=== PATIENT | male | born 1990 | race Two or more races ===

== ENCOUNTER 2025-01-14 10:48 | Inpatient (IN) | payer MEDICAID, SELFPAY ==
[2025-01-14 10:57] VITALS: PULSE 120
[2025-01-14 10:58] VITALS: BMI 27.4
[2025-01-14 10:59] VITALS: BP 159/108; PULSE 112; RESP 18; TEMP 37.2; O2SAT 100
--- NOTE | 2025-01-14 11:06 | EKG_ITS ---
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
--- NOTE | 2025-01-14 11:09 | PD.EDADULT ---
ED General RME/HPI General Chief complaint: Seizure Stated complaint: SEIZURE Time Seen by Provider: 01/14/25 11:02 Arrival date/time: 01/14/25 10:48 CC: Possible seizure HPI patient presents to the ER via EMS report tachycardia otherwise stable vital signs. The patient was found with a seizure-like activity at home. The patient is an alcoholic drinking beer for the past 5 years last beer consumption was at 10 PM last night. Patient is awake alert oriented states he is a diabetic does not take any medications for it. Patient currently denies chest pain shortness of breath difficulty breathing headache nausea vomiting or diarrhea. Review of the medical record show the patient has no prior visits to this facility. at bedside states the patient drinks up to 20 beers a day. She states yesterday the patient drank only 4 beers Related Data Allergies Allergy/AdvReac Type Severity Reaction Status Date / Time No Known Allergies Allergy Verified 01/14/25 11:04 Review of Systems Review of Systems Narrative Review of Systems: GEN: No fever, no chills, no weight loss EYES: No discharge, no visual changes, no pain HEENT: No ear pain, no congestion, no sore throat PULM: No shortness of breath, no cough, no congestion CV: No chest pain, no dyspnea on exertion, no palpitations GI: No nausea, no vomiting, no diarrhea, no pain, no constipation : No frequency, no urgency, no dysuria MUSC/SKEL: No joint pain, no back pain SKIN: No rash PSYCH: No hallucinations, no depression HEME/LYMPH: No easy bleeding or bruising tendencies NEURO: No weakness, no headache Past Medical History Past Medical History CARDIAC: Positive Hypercholesterolemia and Hypertension; Negative Congestive Heart Failure RESPIRATORY: Negative Chronic Obstructive Pulmonary Disease (COPD) GENITOURINARY: Negative Renal Disease ENDOCRINE: Positive Diabetes Mellitus Type 2; Negative Diabetes Mellitus Type 1 Social History SMOKING STATUS: Never smoker ED Exam Narrative Physical exam: [General: Appears not in any acute distress Head normocephalic HEENT: Eyes pupils are PERRLA EOMs are intact mouth pink dry membranes uvula is midline swallow symmetrical phonation is normal no nose: No rhinorrhea epistaxis. All other subsystems of age anterior within acceptable limits Neck is supple nontender, no JVD no edema Chest equal chest rise nontender to palpation Respiratory: Clear to auscultation no wheezes crackles or rubs CV: Rate rhythm is regular, tachycardic, no murmurs rubs or clicks Abdomen is soft nontender no masses positive bowel sounds all 4 quadrants Back: No CVA tenderness no spinous process tenderness from cervical spine thoracic and lumbar spine Skin: Intact no petechiae rash induration ulceration or crepitus Extremities: Moving all extremity against resistance cap refill less than 2 seconds neurosensory intact. No lower extremity edema. Neuro: Awake alert oriented x3 Glascow coma 15 no focal deficits] Course Course Course Narrative: Upon initial assessment CIWA of 8. Reexamination of the patient was given 2 mg of Ativan the patient's heart rate continues to be elevated now in the 1 teens she was increased to 12 at this time I am concerned about this patient having significant alcohol withdrawal. Patient's case then discussed with the resident for Dr. Doll agrees to accept the patient for alcohol withdrawal. Quality Measures none Orders Category Date Time Status EKG (ED ONLY) *Do not use* NOW Care 01/14/25 11:06 Completed Saline [Insert IV] NOW Care 01/14/25 11:06 Active EKG (ED Only) Stat Exams 01/14/25 11:06 Draft Alcohol, Blood Medical Stat Lab 01/14/25 11:26 Completed B-Type Natriuretic Peptide Stat Lab 01/14/25 11:26 Completed CBC Stat Lab 01/14/25 11:26 Completed Comprehensive Metabolic Panel Stat Lab 01/14/25 11:26 Completed Drug Screen,Urine Stat Lab 01/14/25 11:44 Completed LDH (Lactate Dehydrogenase) Stat Lab 01/14/25 11:26 Completed Magnesium Stat Lab 01/14/25 11:26 Completed Partial Thromboplastin Time Stat Lab 01/14/25 11:26 Completed Prothrombin Time with INR Stat Lab 01/14/25 11:26 Completed Troponin I Stat Lab 01/14/25 11:26 Completed Urinalysis Stat Lab 01/14/25 11:44 Completed Folic Acid Inj Med 01/14/25 11:06 Discontinued 1 mg IVP X1 ONE Insulin Regular Med 01/14/25 12:47 Discontinued 5 unit SC X1 ONE LORazepam [Ativan Inj] Med 01/14/25 11:14 Discontinued 2 mg IVP X1 ONE LORazepam [Ativan Inj] Med 01/14/25 14:21 Discontinued 2 mg IVP X1 ONE Sodium Chloride 0.9% 1000 ml [Ns] 1,000 ml Med 01/14/25 11:07 Active IV 125 mls/hr Sodium Chloride 0.9% 1000 ml [Ns] 1,000 ml Med 01/14/25 11:06 Discontinued IV 999 mls/hr Thiamine Inj [Vitamin B-1 Inj] Med 01/14/25 11:30 Discontinued 100 mg IVP X1 ONE Thiamine Inj [Vitamin B-1 Inj] 100 mg Med 01/14/25 11:07 Discontinued Sodium Chloride 0.9% [Ns] 100 ml IV X1 chlordiazePOXIDE HCl [Librium] Med 01/14/25 11:06 Discontinued 25 mg PO X1 ONE Vital Signs Vital signs: Vital Signs Temperature 99.0 F 01/14/25 10:59 Pulse Rate 112 H 01/14/25 10:59 Respiratory Rate 18 01/14/25 10:59 Blood Pressure 159/108 H 01/14/25 10:59 Pulse Oximetry (%) 100 01/14/25 10:59 Oxygen Delivery Method Room Air 01/14/25 10:59 Discharge Plan Plan Patient Disposition: Other Care w/in Hosp ([facility]) Patient condition on transfer: Stable Prescriptions/Referrals Referrals: No Primary/Family,Physician [Primary Care Provider] - In 1 week Problem List Clinical Impression: Hyponatremia, Alcohol withdrawal Patient/Caregiver Discharge Instructions Print Language: Martiniquais Stand Alone Forms: Mary Award Info., Patient Portal Info Letter PA/VIRTUAL REALITY SPECIALIST Supervising Physician PA/VIRTUAL REALITY SPECIALIST Supervising Physician: Simeon Norris ENP MDM Labs/Rad/Tests considered, not ordered Describe: CBC shows a leukocytosis of 14 2 with an H&H of 12.2 and 34.8 respectively platelets of 236 Coags show PT of 12.7 no other abnormalities CMP shows a sodium of 127 chloride of 93 potassium 3.5 no renal impairment. Glucose at 409 mag at 2.2 Total bili at 1.7 AST of 133 ALT 47 alk phos of 388 LDH at 207 Troponin and BNP within acceptable limits. Urine shows 2+ protein 4+ glucose 1+ ketones 2+ blood no signs of infection. UDS is negative Alcohol is negative. EKG Interpretation EKG #1: EKG Interpretation: EKG performed at 1126 shows a ventricular rate of 102 ID interval 158 QRS of 85 QTc of 429 is sinus tachycardia. Nonspecific T wave abnormality no old EKG for comparison. Labs Lab(s) Interpretation(s): CBC shows a mild leukocytosis of 14.2 and H&H of 12.0 and 34.8 respectively. Platelets are normal at 236. Coags show PT of 12.7 INR PTT within acceptable limits CMP shows sodium 127 potassium 3.5 chloride 93, glucose of 409. BUN of 7 no other electrolyte imbalances. Total bili at 1.7 AST 133 ALT 46 alk phos at 338. LDH at 207 Troponin is negative BNP is negative Urine shows 2+ protein 4+ glucose 1+ ketones 2+ urine blood. No indication of UTI. UDS is negative Alcohol level is less than 3. Medication Administration(s) Medication Administration History Sodium Chloride (Ns) 1,000 mls @ 125 mls/hr IV .Q8H LARY Stop: 02/13/25 11:06 Last Admin: 01/14/25 12:38 Dose: 125 mls/hr Documented By: LUIS ALFREDO Discontinued Medications Chlordiazepoxide HCl (Chlordiazepoxide Hcl 25 Mg Capsule) 25 mg PO X1 ONE Stop: 01/14/25 11:07 Last Admin: 01/14/25 11:24 Dose: 25 mg Documented By: LUIS ALFREDO Folic Acid (Folic Acid Inj 1 Mg/0.2 Ml) 1 mg IVP X1 ONE Stop: 01/14/25 11:07 Last Admin: 01/14/25 11:25 Dose: 1 mg Documented By: LUIS ALFREDO Sodium Chloride (Ns) 1,000 mls @ 999 mls/hr IV .Q1H1M ONE Stop: 01/14/25 12:06 Last Infusion: 01/14/25 12:38 Dose: Infused Documented By: LUIS ALFREDO Admin: 01/14/25 11:26 Dose: 999 mls/hr Documented By: LUIS ALFREDO Thiamine HCl 100 mg/ Sodium (Chloride) 101 mls @ 202 mls/hr IV X1 ONE Stop: 01/14/25 11:36 Last Admin: 01/14/25 11:36 Dose: Not Given Documented By: LUIS ALFREDO Non-Admin Reason: Cancelled by Provider Insulin Human Regular (Insulin Hum Regular 1 Unit/0.01 Ml (Per Unit)) 5 unit SC X1 ONE Stop: 01/14/25 12:48 Last Admin: 01/14/25 13:10 Dose: 5 unit Documented By: LUIS ALFREDO Co-signed By: TAMEKA Lorazepam (Lorazepam 2 Mg/Ml Vial) 2 mg IVP X1 ONE Stop: 01/14/25 11:15 Last Admin: 01/14/25 13:00 Dose: Not Given Documented By: LUIS ALFREDO Non-Admin Reason: Cancelled by Provider Lorazepam (Lorazepam 2 Mg/Ml Vial) 2 mg IVP X1 ONE Stop: 01/14/25 14:22 Last Admin: 01/14/25 14:27 Dose: 2 mg Documented By: LUIS ALFREDO Thiamine HCl (Thiamine Inj 100 Mg/Ml Vial 2 Ml) 100 mg IVP X1 ONE Stop: 01/14/25 11:31 Last Admin: 01/14/25 11:34 Dose: 100 mg Documented By: LUIS ALFREDO
[2025-01-14] MEDS: chlordiazePOXIDE HCl 25 MG CAPSULE PO ×2 (11:24→22:08)
[2025-01-14] MEDS: FOLIC ACID INJ 1 MG/0.2 ML IVP (11:25)
[2025-01-14] MEDS: SODIUM CHLORIDE 0.9% 1000 ML 1,000 ML 999 ML IV (11:26)
[2025-01-14] MEDS: THIAMINE INJ 100 MG/ML VIAL 2 ML IVP (11:34)
[2025-01-14 11:45] LABS: Basophils # (Auto) 0.1 Thou/mm3 (0.0-0.2); Basophils % (Auto) 1 % (0-2.5); Eosinophils # (Auto) 0.1 Thou/mm3 (0.0-0.5); Eosinophils % (Auto) 1 % (0-10); Hematocrit 34.8 % (41.0-53.0); Immature Granulocytes % (Auto) 1 % (0-0); Immature Granulocytes Auto 0.09 Thou/mm3 (0.00-0.00); Lymphocytes # (Auto) 1.5 Thou/mm3 (1.0-4.8); Lymphocytes % (Auto) 11 % (10-50); Mean Corpuscular HGB Conc 34.5 g/dl (31.0-37.0); Mean Corpuscular Hemoglobin 32.8 pg (25.0-35.0); Mean Corpuscular Volume 95 fL (80-100); Monocytes # (Auto) 1.4 Thou/mm3 (0.0-0.8); Monocytes % (Auto) 10 % (0-12); Neutrophils % (Auto) 78 % (37-80); Nucleated Red Blood Cell % 0 /100 WBC (0); Platelet Count 236 Thou/mm3 (140-440); RDW Standard Deviation 50.6 fL (35.1-43.9); Red Blood Count 3.66 Miln/mm3 (4.50-5.90); White Blood Count 14.2 Thou/mm3 (3.8-10.6)
[2025-01-14 11:58] LABS: B-Type Natriuretic Peptide 53 pg/mL (0-100)
[2025-01-14 11:59] LABS: INR 1.2 (0.9-1.3); Partial Thromboplastin Time 29.5 Seconds (22.0-36.0); Prothrombin Time 12.7 Seconds (9.0-12.2)
[2025-01-14 12:00] LABS: Collection Type, Urine Clean Catch; Squamous Epithelial Cell,Urine 0 /hpf (0-5)
[2025-01-14 12:12] LABS: Alanine Aminotransferase 46 U/L (10-49); Albumin, Serum 4.3 gm/dL (3.5-5.0); Albumin/Globulin Ratio 0.8 (1.2-2.2); Alcohol, Blood Medical < 3.0 mg/dL (0-10.0); Alkaline Phosphatase 338 U/L (46-116); Anion Gap 11 (7-16); Aspartate Amino Transferase 133 U/L (0-34); BUN/Creatinine Ratio 9 Ratio (12-20); Bilirubin,Total 1.7 mg/dL (0.3-1.2); Blood Urea Nitrogen 7 mg/dL (9-23); Calcium 9.4 mg/dL (8.3-10.6); Calcium (Corrected) 9.4 mg/dL (8.5-10.1); Carbon Dioxide 22.7 mMol/L (20.0-31.0); Chloride 93 mMol/L (98-107); Creatinine (Component) 0.8 mg/dL (0.6-1.3); Estimated Creatinine Clearance 113.5 mL/min (>60); Globulin 5.1 gm/dL (2.3-3.5); Magnesium 2.2 mg/dL (1.6-2.6); Osmolality,Calculated 270 (275-295); Potassium 3.5 mMol/L (3.4-5.1); Sodium 127 mMol/L (136-145); Total Protein 9.4 gm/dL (5.7-8.2); Troponin I < 0.020 ng/mL (0.0-0.045); eGFR > 60 See Note
[2025-01-14 12:19] LABS: Amphetamine/Methamp Scrn,U Negative (Negative); Barbiturate Screen,Urine Negative (Negative); Benzodiazepines Screen,Urine Negative (Negative); Benzoylecgonine Screen, Ur Negative (Negative); Fentanyl Screen,Urine Negative (Negative); Opiate Screen,Urine Negative (Negative); THC Screen,Urine Negative (Negative)
[2025-01-14 12:23] LABS: LDH (Lactate Dehydrogenase) 207 U/L (120-246)
[2025-01-14 12:31] LABS: Bilirubin,Urine Negative (Negative); Blood,Urine 2+ (Negative); Clarity,Urine Clear (Clear/Hazy); Color,Urine Yellow (Lt Yel-Yel); Glucose, Urine 4+ (Negative); Ketones,Urine 1+ (Negative); Leukocyte Esterase,Urine Negative (Negative); Nitrite,Urine Negative (Negative); Protein,Urine 2+ (Neg - Trace); RBC,Urine 1 /hpf (0-3); Specific Gravity,Urine 1.031 (1.001-1.035); WBC,Urine < 1 /hpf (0-5)
[2025-01-14 12:35] LABS: Glucose 409 mg/dL (74-106)
[2025-01-14] MEDS: SODIUM CHLORIDE 0.9% 1000 ML 1,000 ML 125 ML IV ×2 (12:38→22:09)
[2025-01-14] MEDS: INSULIN HUM REGULAR 1 UNIT/0.01 ML (PER UNIT) 5 UNIT SC (13:10)
[2025-01-14] MEDS: LORazepam 2 MG/ML VIAL IVP (14:27)
[2025-01-14 15:28] VITALS: BP 155/101; PULSE 113; RESP 19; TEMP 37.7; O2SAT 98
--- NOTE | 2025-01-14 16:18 | XR_ITS ---
Examination: CT brain head without contrast. 2-D sagittal coronal reconstructions Date and time of exam:January 14, 2025 at 1640 hours. CTDI: vol (mGy):53 DLP: (mGycm):1003 Technique: Multiple CT axial sections of the brain have been obtained, 5 mm slice thickness. Contrast has not been administered. 2-D sagittal, coronal reconstructions have been obtained Low dose protocols were performed. One or more of the following dose reduction techniques were used; automated exposure control, adjustment of the mA and/or KV according to patient size, use of iterative reconstruction technique. Findings: No significant ventricular enlargement. Intra-axial or extra-axial hemorrhage density is not seen. No mass effect or midline shift Basal cisterns are not remarkable. Fourth ventricle is midline. Cranial vault intact. Subtle low density 25 mm in the right cerebellar hemisphere Impression: Negative for acute hemorrhage, mass effect or midline shift Subtle low density, which may be old, in the right cerebellar hemisphere, 25 mm, axial image 30, recommend MRI brain follow-up pre and postcontrast
--- NOTE | 2025-01-14 16:18 | XR_ITS ---
Examination: CT cervical spine without contrast 2-D sagittal reconstructions 2-D coronal reconstructions 3-D reconstructions. Exam date and time:January 14, 2025 1640 hours INDICATIONS: Patient fell today with seizures, injury to the neck, neck pain CTDI:vol (mGy) 14 DLP: (mGycm) 9 Technique: Multiple 2 mm axial sections of the cervical spine have been obtained. The coronal and sagittal reconstructions have been obtained. 3-D reconstructions have been obtained. Low dose protocols were performed. One or more of the following dose reduction techniques were used; automated exposure control, adjustment of the mA and/or KV according to patient size, use of iterative reconstruction technique. Findings: Axial sections demonstrate intact base of the skull. C1 exhibit satisfactory relationship to the odontoid. No acute cervical vertebral body fracture seen. Alignment posterior spinous processes satisfactory. Impression: No acute cervical fracture.
[2025-01-14 17:58] VITALS: BP 132/94; PULSE 94; RESP 17; TEMP 37.4; O2SAT 100
--- NOTE | 2025-01-14 18:33 | PD.RESHP ---
Documentation for date of: 01/14/25 HPI History of Present Illness Chief complaint: alcohol withdrawal with seizure like activity History of present illness: 34-year-old male with past medical history of diabetes, hypertension, and hyperlipidemia, but not taking any medication was admitted to the hospital on 01/14/2025 after coming to the ED with complaints of seizure-like activity today after patient had not been drinking alcohol since yesterday at 8 PM. Patient stated that he had been drinking around a 12 pack of beer every day for the past few years and that his last drink was yesterday at 8 PM. Today patient was working outside in the yard work when he suddenly lost consciousness and collapsed to the ground. Patient's who was at bedside stated that patient started having some foaming from his mouth and that he was cheeking as well. She stated that patient hit his head with one of the steps of the staircase and he also scraped his left shoulder. Patient and patient's stated that this is the first episode that he has had any seizure-like activity and that he has not had alcohol withdrawals before. Patient also mentioned that he has a lesion on his tongue which she thinks is infected and this was from prior to his episode of seizure-like activity today. Patient is on no medications right now for his medical history. He did mention that he had a slight headache and his CIWA score on my assessment was 7, but earlier he came in with a CIWA score of 8 which then went up to 12 before my initial assessment. He denies any chest pain, shortness of breath, dysuria, bloody bowel movements, nausea or vomiting, or abdominal pain. ED course: Initially came in tachycardic and hypertensive. Initial labs were relevant for leukocytosis (14.2), pseudohyponatremia (127 and corrected 132), hyperglycemia (409), hyperbilirubinemia (1.7), transaminitis (AST 133 and alkaline phosphatase 338), and urine was positive for proteins, blood, and ketones. Alcohol levels were less than 3. Initial imaging included EKG which showed sinus tachycardia. Head CT which showed a 25 mm area suspicious for possible old right cerebellar hemisphere infarct and cervical spine CT which was unremarkable. In the ED patient received 1 dose of Librium 25 mg, 5 units of insulin, and 2 mg of lorazepam. PMH: As above Surgical Hx: None per patient Social Hx: Denies any smoking or illicit drugs, admits to drinking alcohol about 12 beers per day. Medications: None per patient Review of Systems Review of Systems Narrative Review of Systems: Constitutional: Denies sweats, Denies weight loss/gain, Denies fever, Denies chills. HEENT: Denies hearing loss, Denies ear pain, Denies postnasal drip, Denies double vision, Denies blurry vision. Respiratory: Denies shortness of breath, Denies cough, Denies wheezing. Cardiovascular: Denies chest pain, Denies palpitations, Admits sudden loss of consciousness. GI: Denies blood in stool, Denies constipation, Denies abdominal pain, Denies difficulty swallowing, Denies nausea or vomit. : Denies urinary incontinence, Denies pain while urinating, Denies increased urinary frequency. MSK: Denies joint pain, Denies joint swelling, Denies numbness. Skin: Denies rash, Denies itching, Denies easy bruising. Neuro: Admits headaches, Denies dizziness, Admits seizures. Past Medical History Past Medical History CARDIAC: Positive Hypercholesterolemia and Hypertension; Negative Congestive Heart Failure RESPIRATORY: Negative Chronic Obstructive Pulmonary Disease (COPD) GENITOURINARY: Negative Renal Disease ENDOCRINE: Positive Diabetes Mellitus Type 2; Negative Diabetes Mellitus Type 1 Social History SMOKING STATUS: Never smoker Exam Vital Signs Temp Pulse Resp BP Pulse Ox O2 Del Method O2 Flow Rate 99.4 F 94 17 132/94 H 100 Nasal Cannula 1 01/14/25 17:58 01/14/25 17:58 01/14/25 17:58 01/14/25 17:58 01/14/25 17:58 01/14/25 17:58 01/14/25 17:58 Narrative Exam General: A/O x3, mild distress, diaphoretic, anxious appearing Eyes: PERRL, EOMI. Anicteric, vision grossly intact. Ears: No ear pain, no ear discharge, Hearing grossly intact. Nose: No nasal discharge. Mouth/Throat: Dry mucous membranes, no redness, eryhtematous lesion on R side tip of the tongue without discharge. Neck: Neck supple, non-tender, no cervical lymphadenopathy. Lungs: Clear BLAINE to auscultation and percussion, No accessory muscle use. Cardio: Normal S1/S2, regular rhythm, no murmurs, no JVD Abdomen: Soft,but distended, non-tender, no palpable masses, peristalsis present, no guarding or rebound. Extremities: Symmetrical, no significant deformities, no peripheral edema , non-tender, peripheral pulses presents, tremors visible in UE when extended. Skin: No rashes, no lesions, warm to touch. Neuro: No focal neurological deficits. motor and sensory intact Psych: Anxious appearing Results: Labs 01/15/25 05:01/15/25 05: Labs: Short CBC 01/14/25 Range/Units 11:26 WBC 14.2 H (3.8-10.6) Thou/mm3 Hgb 12.0 L (13.5-16.0) g/dL Hct 34.8 L (41.0-53.0) % Plt Count 236 (140-440) Thou/mm3 BMP 01/14/25 11:26 Sodium 127 L Potassium 3.5 Chloride 93 L Carbon Dioxide 22.7 BUN 7 L Creatinine 0.8 Glucose 409 H* Calcium 9.4 Cardiac Enzymes 01/14/25 Range/Units 11:26 Troponin I < 0.020 (0.0-0.045) ng/mL Liver Function 01/14/25 Range/Units 11:26 Total Bilirubin 1.7 H (0.3-1.2) mg/dL AST 133 H (0-34) U/L ALT 46 (10-49) U/L Alkaline Phosphatase 338 H (46-116) U/L Albumin 4.3 (3.5-5.0) gm/dL Urine 01/14/25 Range/Units 11:44 Urine Color Yellow (Lt Yel-Yel) Urine Clarity Clear (Clear/Hazy) Urine pH 7.0 (5.0-7.0) Ur Specific [place] 1.031 (1.001-1.035) Urine Protein 2+ A (Neg - Trace) Urine Glucose (UA) 4+ A (Negative) Quality Measures Quality Measures none Medications Home Medications and Allergies Home Medications ?Medication ?Instructions ?Recorded ?Confirmed ?Type Unobtainable 01/14/25 01/14/25 History Allergies Allergy/AdvReac Type Severity Reaction Status Date / Time No Known Allergies Allergy Verified 01/14/25 11:04 Visit Medications Acetaminophen (Acetaminophen 325 Mg Tablet) 650 mg PO Q6H PRN PRN Reason: pain 1-3 and Fever >100.4 Stop: 02/13/25 17:27 Chlordiazepoxide HCl (Chlordiazepoxide Hcl 25 Mg Capsule) 25 mg PO TID [facility] Stop: 01/15/25 21:59 Dextrose (Dextrose 50%-Water Inj 50 Ml Syringe) 25 ml IV Q15MIN PRN PRN Reason: BG 50-70 responsive npo pt Stop: 02/13/25 17:27 Dextrose (Dextrose 50%-Water Inj 50 Ml Syringe) 50 ml IV Q15MIN PRN PRN Reason: BG <50 OR BG <70 & pt unresponsive Stop: 02/13/25 17:27 Enoxaparin Sodium (Enoxaparin Sod Inj 40 Mg/0.4 Ml Syringe) 40 mg SC QDAY [facility] Stop: 01/29/25 08:59 Folic Acid (Folic Acid 1 Mg Tablet) 1 mg PO BID [facility] Stop: 01/19/25 20:59 Glucagon (Glucagon Inj 1 Mg Vial) 1 mg IM Q15MIN PRN PRN Reason: BG <70, and no IV access Sodium Chloride (Ns) 1,000 mls @ 125 mls/hr IV .Q8H [facility] Stop: 02/13/25 11:06 Last Admin: 01/14/25 12:38 Dose: 125 mls/hr Insulin Glargine (Insulin Glargine (Lantus) 5 Unit/0.05 Ml (Per 5 Units)) 10 unit SC QDAY [facility] Stop: 02/13/25 17:44 Insulin Human Lispro (Insulin Lispro (Admelog) 1 Unit/0.01 Ml Unit) 0 unit SC AC [facility]; Protocol Stop: 02/14/25 07:29 Lorazepam (Lorazepam 0.5 Mg Tablet) 0.5 mg PO Q4HR PRN PRN Reason: CIWA Score 2-6 Stop: 01/19/25 17:27 Lorazepam (Lorazepam 2 Mg/Ml Vial) 1 mg IV X1 PRN PRN Reason: Breakthrough Agitation Lorazepam (Lorazepam 0.5 Mg Tablet) 1 mg PO Q4HR PRN PRN Reason: CIWA SCORE 7-11 Stop: 01/19/25 17:27 Lorazepam (Lorazepam 0.5 Mg Tablet) 2 mg PO Q4HR PRN PRN Reason: CIWA SCORE 12-15 Stop: 01/19/25 17:27 Ondansetron HCl (Ondansetron Inj 2 Mg/Ml Inj 2 Ml) 4 mg IV Q6H PRN; Protocol PRN Reason: NAUSEA OR VOMITING Stop: 02/13/25 17:27 Pantoprazole Sodium (Pantoprazole Inj 40 Mg Vial) 40 mg IVP QDAY [facility] Stop: 02/13/25 17:29 Thiamine HCl (Thiamine 100 Mg Tablet) 100 mg PO BID [facility]ARY Stop: 01/19/25 20:59 Discontinued Medications Chlordiazepoxide HCl (Chlordiazepoxide Hcl 25 Mg Capsule) 25 mg PO X1 ONE Stop: 01/14/25 11:07 Last Admin: 01/14/25 11:24 Dose: 25 mg Folic Acid (Folic Acid Inj 1 Mg/0.2 Ml) 1 mg IVP X1 ONE Stop: 01/14/25 11:07 Last Admin: 01/14/25 11:25 Dose: 1 mg Sodium Chloride (Ns) 1,000 mls @ 999 mls/hr IV .Q1H1M ONE Stop: 01/14/25 12:06 Last Infusion: 01/14/25 12:38 Dose: Infused Thiamine HCl 100 mg/ Sodium (Chloride) 101 mls @ 202 mls/hr IV X1 ONE Stop: 01/14/25 11:36 Last Admin: 01/14/25 11:36 Dose: Not Given Insulin Human Regular (Insulin Hum Regular 1 Unit/0.01 Ml (Per Unit)) 5 unit SC X1 ONE Stop: 01/14/25 12:48 Last Admin: 01/14/25 13:10 Dose: 5 unit Lorazepam (Lorazepam 2 Mg/Ml Vial) 2 mg IVP X1 ONE Stop: 01/14/25 11:15 Last Admin: 01/14/25 13:00 Dose: Not Given Lorazepam (Lorazepam 2 Mg/Ml Vial) 2 mg IVP X1 ONE Stop: 01/14/25 14:22 Last Admin: 01/14/25 14:27 Dose: 2 mg Thiamine HCl (Thiamine Inj 100 Mg/Ml Vial 2 Ml) 100 mg IVP X1 ONE Stop: 01/14/25 11:31 Last Admin: 01/14/25 11:34 Dose: 100 mg Assessment & Plan Plan 34-year-old male with past medical history of diabetes, hypertension, and hyperlipidemia, but not taking any medication was admitted to the hospital on 01/14/2025 for alcohol withdrawal with seizures. #Alcohol withdrawal with seizures #Seizure-like activity likely secondary to alcohol withdrawal #Transaminitis #Hyperbilirubinemia Patient stated that he drinks around 12 beers a day and that today he did not drink anything. Patient's last drink was yesterday around 8 PM. Patient had seizure-like activity witnessed by the and loss of consciousness as well today in the morning while he was working in his yard. This is the first episode Alcohol level is less than 3 CIWA score of 7 on my assessment Patient's AST was 133, alkaline phosphatase 338, and T bilirubin 1.7 on admission this most likely due to alcohol use Plan: IV fluids CIWA protocol ordered Schedule Librium 25 mg 3 times daily EEG ordered Abdomen ultrasound ordered to assess for cirrhosis and possible ascites Seizure precautions ordered Will continue to monitor patient's liver enzymes in the morning. 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, [address] that showed a 25 mm area suspicious for possible old right cerebellar hemisphere infarct Plan: Will order MRI brain without contrast to better assess Will continue to monitor Neurology consulted, appreciate recommendations #Uncontrolled DM2 #Hyperglycemia Patient has a history of diabetes, but has been noncompliant with his medication and is currently on no medication Patient came in with blood sugar of 409 with some ketones seen in the urine, but no high anion gap metabolic acidosis Plan: A1c for morning labs Insulin glargine 10 units daily ISS Hypoglycemia protocol ordered Will continue to monitor #Pseudohyponatremia Patient's sodium was 127, but glucose was 409 therefore corrected sodium was 132 Close to be a component of beer potomania Plan: IV fluids Will continue to monitor #Tongue lesion, possible abscess #Leukocytosis Patient does have a white blood cell count of 14.2 and he does have a lesion on the tip of his tongue on the right aspect that is erythematous, but no purulent discharge seen Patient stated this has been there for around 3 days No fevers Plan: Will place patient on Unasyn 3 mg every 6 hours Will continue to monitor #Hx of hypertension #Hx of hyperlipidemia Patient is not on any medications for either hypertension hyperlipidemia Patient's high blood pressure in the hospital could be most likely due to alcohol withdrawal Plan: Ordered morning lipid panel Will continue to monitor patient's blood pressure Disposition: Patient admitted to telemetry for alcohol withdrawal with seizures. Diet: Carb low GI prophylaxis: protonix DVT prophylaxis: lovenox Code: full Case disclosed with Attending Dr. Surekha Pope PGY1 Attending Provider Attestation/Addendum I reviewed labs, imaging, EKG, home medications and prior available records. Face to face evaluation was performed by me. I have personally examined the patient and discussed assessment and plan with the IM team. I reviewed the resident note and agree with the plan with exceptions as below. 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 Continue IV fluids Monitor sodium level Avoid alcohol use Thiamine and folic acid Seizure precautions Trend LFTs Trend WBC Started insulin Lantus plus sliding scale insulin. Monitor fingersticks Ensure medication compliance Ordered brain MRI to better visualize the abnormal CT scan finding
--- NOTE | 2025-01-14 18:44 | XR_ITS ---
Examination: Abdomen sonogram, complete Date and time of exam: January 14, 2025 1920 hours INDICATIONS: Diagnosis cirrhosis with abdominal distention today. Technique: Multiple real-time grayscale transabdominal sonographic images of the abdomen have been obtained. Findings: Gallbladder sludge Contracted gallbladder gallbladder wall thickening 0.6 cm Common bile duct 0.4 cm The pancreatic head 2.5 cm the aorta is not enlarged. Hepatomegaly 20.8 cm fatty infiltration Normal hepatopedal portal venous flow Patent IVC Right kidney 11.7 cm the cortex 1.7 cm left kidney 11.7 cm Vortex 2.2 cm Mild renal parenchymal scar formation Spleen not enlarged IMPRESSION: Suspicious for acalculus cholecystitis, consider MRCP or HIDA scan follow-up
[2025-01-14 21:10] VITALS: BP 140/103; PULSE 108; RESP 17; TEMP 37.1; O2SAT 97
[2025-01-14] MEDS: FOLIC ACID 1 MG TABLET PO (21:16)
[2025-01-14] MEDS: THIAMINE 100 MG TABLET PO (21:16)
[2025-01-14] MEDS: PANTOPRAZOLE INJ 40 MG VIAL IVP (21:17)
[2025-01-14] MEDS: INSULIN GLARGINE (Lantus) 5 UNIT/0.05 ML (PER 5 UNITS) 10 UNIT SC (21:18)
[2025-01-14] MEDS: AMPICILLIN/SULBAC INJ 3 GM in SODIUM CHLORIDE 0.9% (POP) 100 ML IV (21:22)
[2025-01-14 22:29] VITALS: BP 142/99; PULSE 105; RESP 16; TEMP 37.7; O2SAT 98
[2025-01-15] VITALS (7 sets, daily range): BP systolic 137–148; BP diastolic 84–109; PULSE 80–104; RESP 18–98; TEMP 36.3–36.8; O2SAT 96–99; BMI 26.5; BMI 26.6
--- NOTE | 2025-01-15 02:15 | RESP.EEG ---
EEG has been recorded and is ready for MD interpretation
[2025-01-15] MEDS: chlordiazePOXIDE HCl 25 MG CAPSULE PO (05:07)
[2025-01-15] MEDS: AMPICILLIN/SULBAC INJ 3 GM in SODIUM CHLORIDE 0.9% (POP) 100 ML IV ×2 (05:07→11:25)
[2025-01-15 06:16] LABS: Basophils # (Auto) 0.1 Thou/mm3 (0.0-0.2); Basophils % (Auto) 1 % (0-2.5); Eosinophils # (Auto) 0.4 Thou/mm3 (0.0-0.5); Eosinophils % (Auto) 3 % (0-10); Hematocrit 34.9 % (41.0-53.0); Hemoglobin 11.7 g/dL (13.5-16.0); Immature Granulocytes % (Auto) 0 % (0-0); Immature Granulocytes Auto 0.04 Thou/mm3 (0.00-0.00); Lymphocytes # (Auto) 1.6 Thou/mm3 (1.0-4.8); Lymphocytes % (Auto) 13 % (10-50); Mean Corpuscular HGB Conc 33.5 g/dl (31.0-37.0); Mean Corpuscular Hemoglobin 32.1 pg (25.0-35.0); Mean Corpuscular Volume 96 fL (80-100); Monocytes # (Auto) 1.1 Thou/mm3 (0.0-0.8); Monocytes % (Auto) 9 % (0-12); Neutrophils # (Auto) 8.9 Thou/mm3 (1.8-7.7); Neutrophils % (Auto) 73 % (37-80); Nucleated Red Blood Cell % 0 /100 WBC (0); Platelet Count 194 Thou/mm3 (140-440); RDW Standard Deviation 51.9 fL (35.1-43.9); Red Blood Count 3.64 Miln/mm3 (4.50-5.90); White Blood Count 12.1 Thou/mm3 (3.8-10.6)
[2025-01-15 06:51] LABS: Alanine Aminotransferase 45 U/L (10-49); Albumin/Globulin Ratio 0.9 (1.2-2.2); Alkaline Phosphatase 307 U/L (46-116); Anion Gap 11 (7-16); Aspartate Amino Transferase 165 U/L (0-34); BUN/Creatinine Ratio 8 Ratio (12-20); Bilirubin,Total 1.3 mg/dL (0.3-1.2); Blood Urea Nitrogen < 5 mg/dL (9-23); Calcium 8.5 mg/dL (8.3-10.6); Calcium (Corrected) 8.5 mg/dL (8.5-10.1); Carbon Dioxide 26.5 mMol/L (20.0-31.0); Chloride 99 mMol/L (98-107); Creatinine (Component) 0.6 mg/dL (0.6-1.3); Estimated Creatinine Clearance 151.3 mL/min (>60); Globulin 4.7 gm/dL (2.3-3.5); Glucose 177 mg/dL (74-106); Osmolality,Calculated 273 (275-295); Potassium 3.1 mMol/L (3.4-5.1); Sodium 136 mMol/L (136-145); Thyroid Stimulating Hormone 4.82 uIU/mL (0.55-4.78); Total Protein 8.7 gm/dL (5.7-8.2); eGFR > 60 See Note
[2025-01-15 06:57] LABS: Glucose Estimated Average 249 mg/dL (80-131); Hemoglobin A1C 10.3 % Hgb (4.8-6.0)
[2025-01-15 08:00] LABS: Free T4 (Free Thyroxine) 1.09 ng/dL (0.89-1.76)
[2025-01-15] MEDS: POTASSIUM CHLORIDE 20 mEq TABCR 40 MEQ PO (08:37)
[2025-01-15] MEDS: ASPIRIN EC 81 MG TABEC PO (08:38)
[2025-01-15] MEDS: FOLIC ACID 1 MG TABLET PO (08:38)
[2025-01-15] MEDS: PANTOPRAZOLE INJ 40 MG VIAL IVP (08:38)
[2025-01-15] MEDS: THIAMINE 100 MG TABLET PO (08:38)
[2025-01-15] MEDS: SODIUM CHLORIDE 0.9% 1000 ML 1,000 ML 125 ML IV (08:39)
[2025-01-15] MEDS: INSULIN GLARGINE (Lantus) 5 UNIT/0.05 ML (PER 5 UNITS) 10 UNIT SC (08:39)
[2025-01-15] MEDS: INSULIN LISPRO (AdmeLOG) 1 UNIT/0.01 ML UNIT SC ×3 (08:40→16:53)
[2025-01-15] MEDS: ENOXAPARIN SOD INJ 40 MG/0.4 ML SYRINGE SC (08:41)
--- NOTE | 2025-01-15 11:03 | PC.SS ---
Patient Doug Kim is a 59 Year old male admitted for Alcohol Withdraw with Seizures. SS met with patient at bedside to verify demographic information. Patient reports he is from [facility]. Patient was visiting her cousin prior to admission. Patient reports he lives at home with his , Toya Rollins who is his surrogate decision maker [phone]. Patient is able to ambulate and does not utilize any source of DME to assist with ambulation. Patient reports he does have a PCP in [place]. Patient reports pharmacy of choice is [facility]. SS inquired about ETOH resources, however patient refused and informed SS that after this admission he will stop drinking. At time of discharge family will provide transportation. Discharge Plan: Home Next of kin: , Toya Rollins
--- NOTE | 2025-01-15 11:55 | PD.RESCONSUL ---
HPI Data of Consult Requesting Physician: Sivakumar Irby MD Admitting Provider: Sivakumar Irby MD Attending Provider: Sivakumar Irby MD Primary Care Provider: Physician No Primary/Family Consult Narrative History of present illness: The patient is a 34-year-old male with a previous medical history of diabetes, hypertension and hyperlipidemia who was admitted to the hospital on 01/14/2025 after having an episode of seizures. at the bedside, reports that he was gardening, then he fell, hit his head and left shoulder on the ladder and started to jerk with foam coming out of his mouth. It lasted for approximately for 1-2 minutes. He denies involuntary defecation and urination. reports that he was confused after the seizure. He himself does not remember the seizure, remembers waking up in the ambulance. He and his denies having seizures before or family history of seizures. He reports drinking alcohol every day, 4 bottles of beer every day. Per chart review, he reported having 12 pack of beer every day for the last few year. The day he had a seizure he denies alcohol use, but he drank alcohol the day before. ED course: vitals were stable, initial head CT was suspicious for the old infarct in the right cerebellar hemisphere, 25 mm. Brain MRI was negative for acute infarct, but showed punctate focus of increased signal in the right frontoparietal white matter, subtle hyperintensity involving the cortical gyri. Imaging also was suspicious for acalculous cholecystitis. In the ED he was found to be actively withdrawing from alcohol and was started on CIWA protocol with scheduled Librium and lorazepam as needed, insulin sliding scale and Unasyn for possible cholecystitis. Neurology was consulted for the first time provoked seizure workup and management Social history: visiting [place] from [place], [place]. Occupation cuts trees, denies smoking, drinks alcohol every day, reported using meth 2 weeks per month. Surgical history: Denies Allergies: Denies Medications: Reports taking diabetes medication sometimes, does not remember the name. cc:: cc: Sivakumar Irby MD Review of Systems Review of Systems Systems Reviewed: All systems reviewed, normal except as documented Past Medical History Past Medical History CARDIAC: Positive Hypercholesterolemia and Hypertension; Negative Congestive Heart Failure RESPIRATORY: Negative Chronic Obstructive Pulmonary Disease (COPD) GENITOURINARY: Negative Renal Disease ENDOCRINE: Positive Diabetes Mellitus Type 2; Negative Diabetes Mellitus Type 1 Social History SMOKING STATUS: Never smoker Exam Vital Signs Temp Pulse Resp BP Pulse Ox O2 Del Method O2 Flow Rate 97.6 F 98 19 148/106 H 98 Room Air 1 01/15/25 08:00 01/15/25 08:00 01/15/25 08:00 01/15/25 08:00 01/15/25 08:00 01/15/25 08:00 01/14/25 17:58 Narrative Exam Physical Exam General: Awake and in no acute distress. Conversational and non-toxic appearing. HEENT: Normocephalic, tongue ecchymosis, mucous membranes moist. Heart: Regular rate and rhythm, no murmurs. Lungs: Clear to auscultation with no wheezing or crackles. Abdomen: Soft, nondistended, nontender, positive bowel sounds. ?No guarding or rebound tenderness. Neurologic: Alert and oriented x3, no gross neurological deficit, and patient able to move all 4 extremities. Extremities: No edema. Skin: No rash or ecchymoses. Results Labs 01/15/25 05:01/15/25 05:25 Labs: Short CBC 01/14/25 01/15/25 Range/Units 11:26 05: WBC 14.2 H 12.1 H (3.8-10.6) Thou/mm3 Hgb 12.0 L 11.7 L (13.5-16.0) g/dL Hct 34.8 L 34.9 L (41.0-53.0) % Plt Count 236 194 D (140-440) Thou/mm3 BMP 01/14/25 01/15/25 11:26 05:25 Sodium 127 L 136 Potassium 3.5 3.1 L Chloride 93 L 99 Carbon Dioxide 22.7 26.5 BUN 7 L < 5 L Creatinine 0.8 0.6 Glucose 409 H* 177 H D Calcium 9.4 8.5 Cardiac Enzymes 01/14/25 Range/Units 11:26 Troponin I < 0.020 (0.0-0.045) ng/mL Liver Function 01/14/25 01/15/25 Range/Units 11:26 05: Total Bilirubin 1.7 H 1.3 H (0.3-1.2) mg/dL AST 133 H 165 H (0-34) U/L ALT 46 45 (10-49) U/L Alkaline Phosphatase 338 H 307 H D (46-116) U/L Albumin 4.3 4.0 (3.5-5.0) gm/dL Urine 01/14/25 Range/Units 11:44 Urine Color Yellow (Lt Yel-Yel) Urine Clarity Clear (Clear/Hazy) Urine pH 7.0 (5.0-7.0) Ur Specific [place] 1.031 (1.001-1.035) Urine Protein 2+ A (Neg - Trace) Urine Glucose (UA) 4+ A (Negative) Quality Measures Quality Measures none Medications Home Medications and Allergies Home Medications ?Medication ?Instructions ?Recorded ?Confirmed ?Type Unobtainable 01/14/25 01/14/25 History Allergies Allergy/AdvReac Type Severity Reaction Status Date / Time No Known Allergies Allergy Verified 01/14/25 11:04 Visit Medications Acetaminophen (Acetaminophen 325 Mg Tablet) 650 mg PO Q6H PRN PRN Reason: pain 1-3 and Fever >100.4 Stop: 02/13/25 17:27 Chlordiazepoxide HCl (Chlordiazepoxide Hcl 25 Mg Capsule) 25 mg PO BID [facility] Stop: 01/16/25 20:59 Dextrose (Dextrose 50%-Water Inj 50 Ml Syringe) 25 ml IV Q15MIN PRN PRN Reason: BG 50-70 responsive npo pt Stop: 02/13/25 17:27 Dextrose (Dextrose 50%-Water Inj 50 Ml Syringe) 50 ml IV Q15MIN PRN PRN Reason: BG <50 OR BG <70 & pt unresponsive Stop: 02/13/25 17:27 Enoxaparin Sodium (Enoxaparin Sod Inj 40 Mg/0.4 Ml Syringe) 40 mg SC QDAY [facility] Stop: 01/29/25 08:59 Last Admin: 01/15/25 08:41 Dose: 40 mg Folic Acid (Folic Acid 1 Mg Tablet) 1 mg PO BID [facility] Stop: 01/19/25 20:59 Last Admin: 01/15/25 08:38 Dose: 1 mg Glucagon (Glucagon Inj 1 Mg Vial) 1 mg IM Q15MIN PRN PRN Reason: BG <70, and no IV access Ampicillin Sodium/Sulbactam (Sodium 3 gm/ Sodium Chloride) 100 mls @ 200 mls/hr IV Q6HR [facility] Stop: 01/21/25 18:59 Last Admin: 01/15/25 11:25 Dose: 200 mls/hr Insulin Glargine (Insulin Glargine (Lantus) 5 Unit/0.05 Ml (Per 5 Units)) 10 unit SC QDAY [facility] Stop: 02/13/25 17:44 Last Admin: 01/15/25 08:39 Dose: 10 unit Insulin Human Lispro (Insulin Lispro (Admelog) 1 Unit/0.01 Ml Unit) 0 unit SC AC [facility]; Protocol Stop: 02/14/25 07:29 Last Admin: 01/15/25 11:25 Dose: 2 unit Lorazepam (Lorazepam 0.5 Mg Tablet) 0.5 mg PO Q4HR PRN PRN Reason: CIWA Score 2-6 Stop: 01/19/25 17:27 Lorazepam (Lorazepam 2 Mg/Ml Vial) 1 mg IV X1 PRN PRN Reason: Breakthrough Agitation Lorazepam (Lorazepam 0.5 Mg Tablet) 1 mg PO Q4HR PRN PRN Reason: CIWA SCORE 7-11 Stop: 01/19/25 17:27 Lorazepam (Lorazepam 0.5 Mg Tablet) 2 mg PO Q4HR PRN PRN Reason: CIWA SCORE 12-15 Stop: 01/19/25 17:27 Ondansetron HCl (Ondansetron Inj 2 Mg/Ml Inj 2 Ml) 4 mg IV Q6H PRN; Protocol PRN Reason: NAUSEA OR VOMITING Stop: 02/13/25 17:27 Pantoprazole Sodium (Pantoprazole Inj 40 Mg Vial) 40 mg IVP QDAY [facility] Stop: 02/13/25 17:29 Last Admin: 01/15/25 08:38 Dose: 40 mg Thiamine HCl (Thiamine 100 Mg Tablet) 100 mg PO BID [facility] Stop: 01/19/25 20:59 Last Admin: 01/15/25 08:38 Dose: 100 mg Discontinued Medications Aspirin (Aspirin Ec 81 Mg Tabec) 81 mg PO QDAY [facility] Stop: 02/14/25 08:59 Last Admin: 01/15/25 08:38 Dose: 81 mg Chlordiazepoxide HCl (Chlordiazepoxide Hcl 25 Mg Capsule) 25 mg PO X1 ONE Stop: 01/14/25 11:07 Last Admin: 01/14/25 11:24 Dose: 25 mg Chlordiazepoxide HCl (Chlordiazepoxide Hcl 25 Mg Capsule) 25 mg PO TID [facility] Stop: 01/15/25 21:59 Last Admin: 01/15/25 05:07 Dose: 25 mg Folic Acid (Folic Acid Inj 1 Mg/0.2 Ml) 1 mg IVP X1 ONE Stop: 01/14/25 11:07 Last Admin: 01/14/25 11:25 Dose: 1 mg Sodium Chloride (Ns) 1,000 mls @ 999 mls/hr IV .Q1H1M ONE Stop: 01/14/25 12:06 Last Infusion: 01/14/25 12:38 Dose: Infused Thiamine HCl 100 mg/ Sodium (Chloride) 101 mls @ 202 mls/hr IV X1 ONE Stop: 01/14/25 11:36 Last Admin: 01/14/25 11:36 Dose: Not Given Sodium Chloride (Ns) 1,000 mls @ 125 mls/hr IV .Q8H [facility] Stop: 02/13/25 11:06 Last Admin: 01/15/25 08:39 Dose: 125 mls/hr Insulin Human Regular (Insulin Hum Regular 1 Unit/0.01 Ml (Per Unit)) 5 unit SC X1 ONE Stop: 01/14/25 12:48 Last Admin: 01/14/25 13:10 Dose: 5 unit Lorazepam (Lorazepam 2 Mg/Ml Vial) 2 mg IVP X1 ONE Stop: 01/14/25 11:15 Last Admin: 01/14/25 13:00 Dose: Not Given Lorazepam (Lorazepam 2 Mg/Ml Vial) 2 mg IVP X1 ONE Stop: 01/14/25 14:22 Last Admin: 01/14/25 14:27 Dose: 2 mg Potassium Chloride (Potassium Chloride 20 Meq Tabcr) 40 meq PO X1 ONE Stop: 01/15/25 07:41 Last Admin: 01/15/25 08:37 Dose: 40 meq Thiamine HCl (Thiamine Inj 100 Mg/Ml Vial 2 Ml) 100 mg IVP X1 ONE Stop: 01/14/25 11:31 Last Admin: 01/14/25 11:34 Dose: 100 mg Assessment & Plan Plan The patient is a 34-year-old male with a previous medical history of diabetes, hypertension and hyperlipidemia who was admitted to the hospital on 01/14/2025 after having an episode of seizures. #First time seizure episode #Provoked seizure #Alcohol abuse Patient had an episode of most likely tonic-clonic seizure lasting 1-2 minutes with mouth foaming and tongue biting in the setting of alcohol withdrawal. Initial head CT was suspicious for the old infarct in the right cerebellar hemisphere, 25 mm. Brain MRI was negative for acute infarct, but showed singular punctate focus of increased signal in the right frontoparietal white matter, subtle hyperintensity involving the cortical gyri which could be post-ictal. Plan: ?Seizure precautions ? CIWA protocol ? 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 Parsons. Naya Watts MD, PGY 1. Attending Provider Attestation/Addendum Patient was seen and examined at the bedside and I agree with the residents findings, assessment and plan of care. Discussed with him about the findings on the MRI brain. Follow-up with EEG and then decide about further management. Patient has not had any seizures in the past, he does use meth once or twice a month and drink alcohol on a regular basis.
--- NOTE | 2025-01-15 13:16 | PD.ADDPROG ---
Addendum Progress Note Addendum Date of report being addended: 01/15/25 Narrative: Attending's attestation: I reviewed labs, imaging, EKG, home medications and prior available records. Face to face evaluation was performed by me. I have personally examined the patient and discussed assessment and plan with the IM team. I reviewed the resident note and agree with the plan with exceptions as below. Alcohol abuse Alcohol withdrawal Seizure like activity Transaminitis Leukocytosis Uncontrolled diabetes mellitus with hyperglycemia, insulin-dependent, likely type I Hyponatremia Possible old 25 mm right cerebral CVA Started CIWA protocol Taper oral Librium Continue IV fluids Monitor sodium level Avoid alcohol use Continue thiamine and folic acid Seizure precautions Trend LFTs: Downtrending Trend WBC: Downtrending Started insulin Lantus plus sliding scale insulin. Monitor fingersticks: Improved Ensure medication compliance Ordered brain MRI to better visualize the abnormal CT scan finding: Showed no CVA but hypodensities in the right frontoparietal region. Consulted neurology.
--- NOTE | 2025-01-15 13:44 | ESPR_ITS ---
Documentation for date of: 01/15/25 Subjective Subjective Interval history: Patient was seen and examined bedside this morning. No acute overnight events. Patient CIWA score has remained around 2-3 and has not had any seizures. This morning patient again denied having any visual or auditory hallucinations. Patient's MRI did come back with subtle hyperintensity involving the cortical gyri and punctate focus of increased signal in the right frontoparietal white matter. Patient's abdominal ultrasound did show some suspicion for acute cholecystitis, but patient does not have any clinical symptoms at this time therefore will not pursue HIDA scan at this time. Pending neurology recommendations. Will switch patient's Librium to twice daily instead of 3 times daily. Exam Vital Signs Temp Pulse Resp BP Pulse Ox O2 Del Method O2 Flow Rate 97.7 F 104 H 19 140/109 H 97 Room Air 1 01/15/25 12:00 01/15/25 12:00 01/15/25 12:00 01/15/25 12:00 01/15/25 12:00 01/15/25 12:00 01/14/25 17:58 Narrative Exam General: A/O x3, mild distress, diaphoretic, anxious appearing Eyes: PERRL, EOMI. Anicteric, vision grossly intact. Ears: No ear pain, no ear discharge, Hearing grossly intact. Nose: No nasal discharge. Mouth/Throat: Dry mucous membranes, no redness, eryhtematous lesion on R side tip of the tongue without discharge. Neck: Neck supple, non-tender, no cervical lymphadenopathy. Lungs: Clear CESAR to auscultation and percussion, No accessory muscle use. Cardio: Normal S1/S2, regular rhythm, no murmurs, no JVD Abdomen: Soft,but distended, non-tender, no palpable masses, peristalsis present, no guarding or rebound. Extremities: Symmetrical, no significant deformities, no peripheral edema , non-tender, peripheral pulses presents, tremors visible in UE when extended, but to lesser extent than yesterday. Skin: No rashes, no lesions, warm to touch. Neuro: No focal neurological deficits. motor and sensory intact Psych: Anxious appearing Objective Labs 01/15/25 05:25 01/15/25 05:25 Labs: Laboratory Results - last 24 hr 01/15/25 05:25 WBC 12.1 H RBC 3.64 L Hgb 11.7 L Hct 34.9 L MCV 96 MCH 32.1 MCHC 33.5 RDW Std Deviation 51.9 H Plt Count 194 D Neut % (Auto) 73 Lymph % (Auto) 13 Gregg % (Auto) 9 Eos % (Auto) 3 Baso % (Auto) 1 Neut # (Auto) 8.9 H Lymph # (Auto) 1.6 Gregg # (Auto) 1.1 H Eos # (Auto) 0.4 Baso # (Auto) 0.1 Immature Gran # (Auto) 0.04 H Absolute Nucleated RBC 0.00 Immature Gran % 0 Nucleated RBC % 0 Sodium 136 Potassium 3.1 L Chloride 99 Carbon Dioxide 26.5 Anion Gap 11 BUN < 5 L Creatinine 0.6 Estim Creat Clear Calc 151.3 eGFR > 60 BUN/Creatinine Ratio 8 L Glucose [address] Glu mg/dL 249 H Hemoglobin A1c 10.3 H Calculated Osmolality 273 L Calcium 8.5 Corrected Calcium 8.5 Magnesium 2.0 Total Bilirubin 1.3 H AST 165 H ALT 45 Alkaline Phosphatase 307 H D Total Protein 8.7 H Albumin 4.0 Globulin 4.7 H Albumin/Globulin Ratio 0.9 L TSH 4.82 H Free T4 1.09 Quality Measures Quality Measures none Assessment & Plan Assessment Current Active Medications: Generic Name Dose Route Start Last Admin Trade Name Freq PRN Reason Stop Dose Admin Acetaminophen 650 mg 01/14/25 17:28 Acetaminophen 325 Mg Tablet PO 02/13/25 17:27 Q6H PRN pain 1-3 and Fever >100.4 Chlordiazepoxide HCl 25 mg 01/15/25 21:00 Chlordiazepoxide Hcl 25 Mg Capsule PO 01/16/25 20:59 BID LARY Dextrose 25 ml 01/14/25 17:28 Dextrose 50%-Water Inj 50 Ml Syringe IV 02/13/25 17:27 Q15MIN PRN BG 50-70 responsive npo pt Dextrose 50 ml 01/14/25 17:28 Dextrose 50%-Water Inj 50 Ml Syringe IV 02/13/25 17:27 Q15MIN PRN BG <50 OR BG <70 & pt unresponsive Enoxaparin Sodium 40 mg 01/15/25 09:00 01/15/25 08:41 Enoxaparin Sod Inj 40 Mg/0.4 Ml Syringe SC 01/29/25 08:59 40 mg QDAY LARY Administration Folic Acid 1 mg 01/14/25 21:00 01/15/25 08:38 Folic Acid 1 Mg Tablet PO 01/19/25 20:59 1 mg BID LARY Administration Glucagon 1 mg 01/14/25 17:28 Glucagon Inj 1 Mg Vial IM Q15MIN PRN BG <70, and no IV access Ampicillin Sodium/Sulbactam 100 mls @ 200 mls/hr 01/14/25 19:00 01/15/25 11:25 Sodium 3 gm/ Sodium Chloride IV 01/21/25 18:59 200 mls/hr Q6HR LARY Administration Insulin Glargine 10 unit 01/14/25 17:45 01/15/25 08:39 Insulin Glargine (Lantus) 5 Unit/0.05 Ml (Per 5 Units) SC 02/13/25 17:44 10 unit QDAY LARY Administration Insulin Human Lispro 0 unit 01/15/25 07:30 01/15/25 11:25 Insulin Lispro (Admelog) 1 Unit/0.01 Ml Unit SC 02/14/25 07:29 2 unit AC [facility]ARY Administration Protocol Lorazepam 0.5 mg 01/14/25 17:28 Lorazepam 0.5 Mg Tablet PO 01/19/25 17:27 Q4HR PRN CIWA Score 2-6 Lorazepam 1 mg 01/14/25 17:28 Lorazepam 2 Mg/Ml Vial IV X1 PRN Breakthrough Agitation Lorazepam 1 mg 01/14/25 17:28 Lorazepam 0.5 Mg Tablet PO 01/19/25 17:27 Q4HR PRN CIWA SCORE 7-11 Lorazepam 2 mg 01/14/25 17:28 Lorazepam 0.5 Mg Tablet PO 01/19/25 17:27 Q4HR PRN CIWA SCORE 12-15 Ondansetron HCl 4 mg 01/14/25 17:28 Ondansetron Inj 2 Mg/Ml Inj 2 Ml IV 02/13/25 17:27 Q6H PRN NAUSEA OR VOMITING Protocol Pantoprazole Sodium 40 mg 01/14/25 17:30 01/15/25 08:38 Pantoprazole Inj 40 Mg Vial IVP 02/13/25 17:29 40 mg QDAY LARY Administration Thiamine HCl 100 mg 01/14/25 21:00 01/15/25 08:38 Thiamine 100 Mg Tablet PO 01/19/25 20:59 100 mg BID LARY Administration Plan 34-year-old male with past medical history of diabetes, hypertension, and hyperlipidemia, but not taking any medication was admitted to the hospital on 01/14/2025 for alcohol withdrawal with seizures. #Alcohol withdrawal with seizures #Seizure-like activity likely secondary to alcohol withdrawal #Transaminitis #Hyperbilirubinemia, improving Patient stated that he drinks around 12 beers a day and that today he did not drink anything. Patient's last drink was yesterday around 8 PM. Patient had seizure-like activity witnessed by the and loss of consciousness as well today in the morning while he was working in his yard. This is the first episode Alcohol level is less than 3 CIWA score of 2-3 overnight and this am Today AST 165, ALP 307, T. Cesar 1.3 Plan: CIWA protocol ordered Schedule Librium 25 mg BID EEG ordered Abdomen ultrasound ordered to assess for cirrhosis and possible ascites Seizure precautions ordered 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, [address] that showed a 25 mm area suspicious for possible old right cerebellar hemisphere infarct MRI did come back with subtle hyperintensity involving the cortical gyri and punctate focus of increased signal in the right frontoparietal white matter. Plan: Will continue to monitor Neurology consulted, appreciate recommendations #Uncontrolled DM2 #Hyperglycemia Patient has a history of diabetes, but has been noncompliant with his medication and is currently on no medication Patient came in with blood sugar of 409 with some ketones seen in the urine, but no high anion gap metabolic acidosis A1c 10.3 Plan: Insulin glargine 10 units daily ISS Hypoglycemia protocol ordered Will continue to monitor #Pseudohyponatremia, improving Patient's sodium was 127, but glucose was 409 therefore corrected sodium was 132 Today sodium 136 Close to be a component of beer potomania Plan: Will continue to monitor #Tongue lesion #Leukocytosis, improving Patient does have a white blood cell count of 14.2 and he does have a lesion on the tip of his tongue on the right aspect that is erythematous, but no purulent discharge seen Patient stated this has been there for around 3 days Today patient stated that hedid in fact bite his tongue when he had the seizure- like activity WBC downtrending No fevers Plan: Will discontinue Unasyn 3 mg Will continue to monitor #Hx of hypertension #Hx of hyperlipidemia Patient is not on any medications for either hypertension hyperlipidemia Patient's high blood pressure in the hospital could be most likely due to alcohol withdrawal Plan: Will continue to monitor patient's blood pressure Disposition: Patient admitted to telemetry for alcohol withdrawal with seizures, pending neuro recs Diet: Carb low GI prophylaxis: protonix DVT prophylaxis: lovenox Code: full Case disclosed with Attending Dr. Surekha Pope PGY1 Attending Provider Attestation/Addendum I reviewed labs, imaging, EKG, home medications and prior available records. Face to face evaluation was performed by me. I have personally examined the patient and discussed assessment and plan with the IM team. I reviewed the resident note and agree with the plan with exceptions as below. Alcohol abuse Alcohol withdrawal Seizure like activity Transaminitis Leukocytosis Uncontrolled diabetes mellitus with hyperglycemia, insulin-dependent, likely type I Hyponatremia Possible old 25 mm right cerebral CVA Started CIWA protocol Taper oral Librium Continue IV fluids Monitor sodium level Avoid alcohol use Continue thiamine and folic acid Seizure precautions Trend LFTs: Downtrending Trend WBC: Downtrending Started insulin Lantus plus sliding scale insulin. Monitor fingersticks: Improved Ensure medication compliance Ordered brain MRI to better visualize the abnormal CT scan finding: Showed no CVA but hypodensities in the right frontoparietal region. Consulted neurology.
--- NOTE | 2025-01-15 14:49 | PC.CC ---
Diabetes education and insulin training given by Shira, Activities Volunteer. SMBG preferences discussed with MELINA Bradley. Student's note is as follows: Provided comprehensive diabetes education to the patient, including instructions on the proper use and storage of a glucometer and insulin pen. Demonstrated the [id number] process of using the insulin pen, emphasizing correct technique and storage practices. Discussed the significance of A1c levels and the patient's target glucose range, ensuring understanding of how these metrics influence overall health. Introduced the concept of Continuous Glucose Monitoring (CGM), explaining its functionality and potential benefits in diabetes management. Engaged the patient in a discussion about their preferences for glucose monitoring methods. The patient expressed a preference for using a glucometer over a CGM. Addressed the patient's request for new medications to be sent to the [facility] pharmacy.
--- NOTE | 2025-01-15 17:33 | XR_ITS ---
Examination: MRI brain without intravenous contrast. Date and time of exam: January 15, 2025 0703 hours INDICATIONS: Seizure activity today Technique: Multiple axial and sagittal images of the brain obtained. Siemens high-resolution 1.5 Franny short bore scanners utilized. Sagittal sections, T1-weighted, TR 500, TE 14, are performed. Axial sections proton-density and T2-weighted have been obtained. Inversion recovery axial images, TR 9, 260, TE 111, TI 2500. Diffusion weighted images, axial sections, TR 4800, TE 128, B value 1000 Axial sections, ADC map, TR 4800, TE 128 Findings: Enlargement of the sella turcica is not present. The optic chiasm and infundibular are not remarkable. Prepontine and interpeduncular cisterns are not enlarged. There is no localized enlargement of the medulla or shannan. Fourth ventricle and cerebellar tonsils appear normal in position. No subacute area of hemorrhage density is seen. Mass in the cerebellopontine angle region is not evident. Globes symmetrical. Orbital musculature including medial lateral rectus muscles do not exhibit abnormality. Diffusion-weighted images demonstrate no focus of restricted diffusion. There is subtle hyperintensity involving cortical gyri on the FLAIR images Mass effect upon the ventricular system is not identified. Impression: Negative for acute hemorrhage mass effect or midline shift. No acute infarct On the FLAIR images there is subtle hyperintensity involving the cortical gyri as well as a punctate focus of increased signal in the right frontoparietal white matter, recommend neurology consultation and correlation with clinical findings
--- NOTE | 2025-01-15 19:57 | PD.RESEVENT ---
Documentation for date of: 01/15/25 Event Note Event Note: Received call by ABDELRAHMAN Ellis, the patient wants to leave AMA. Patient was admitted here for alcohol withdrawal, currently less than 48 hours into admission, at risk for withdrawal seizures. Patient was explained about risks of complications of alcohol withdrawal including anxiety, agitation, seizures and . Patient's family at the bedside also encouraged the patient to stay, pros and cons were discussed, patient is alert and oriented x 3, strong return instructions were given to the patient in case of worsening symptoms to return to emergency room, patient was instructed not to drive or operate heavy missionary until he sees his PCP. Caroline PGY 2
--- NOTE | 2025-01-15 20:20 | PC.NURSE ---
Patient refusing to stay in hopsital requests to leave AMA. Risks and education provided to patient and family by Dr Vealzquez with data analytics chief scientist Avelina QUICK. Pt had already removed IV, Tele montor removed. Pt ambulated out of hospital with family.
--- NOTE | 2025-01-15 20:24 | PC.NURSE ---
Patient refusing to stay in hospital requests to leave AMA Pt and family educated on risks of leaving by this nurse, Dr Dos Santos and Public Address Announcer Avelina QUICK. Pt walked out of hospital with family IV and Tele monitor removed.
== END 2025-01-15 20:21 | disposition left against medical advice (07) | DRG 770 ==
LOC: SERX 15:51 → SERHOLD 18:04 → S2NX 22:43
PROVIDERS: Registered Nurse General Practice; Admitting Provider Student in an Organized Health Care Education/Training Program; Emergency Provider Emergency Medicine; Visit Provider Student in an Organized Health Care Education/Training Program
DX: F10.139 Alcohol abuse with withdrawal, unspecified (principal); I10 Essential (primary) hypertension; E11.65 Type 2 diabetes mellitus with hyperglycemia; E78.5 Hyperlipidemia, unspecified; R17 Unspecified jaundice; R74.01 Elevation of levels of liver transaminase levels; G40.89 Other seizures; E87.1 Hypo-osmolality and hyponatremia; Y90.0 Blood alcohol level of less than 20 mg/100 ml; D72.829 Elevated white blood cell count, unspecified; K14.9 Disease of tongue, unspecified; Z91.148 Patient's other noncompliance with medication regimen for other reason; Z79.4 Long term (current) use of insulin
CPT/HCPCS: 36415; 70450; 70551; 72125; 76700; 80053; 80307; 80320; 81001; 83036; 83615; 83735; 83880; 84439; 84443; 84484; 85025; 85610; 85730; 93005; 95816; 96361; 96372; 96374; 96375; 99285; J0295; J1650; J1815; J2060; J2470; J3411; J3490; J7030; A9270; G0480

== ENCOUNTER 2025-01-15 20:52 | Emergency (ER) | payer MEDICAID, SELFPAY ==
[2025-01-15 22:38] VITALS: BP 133/95; PULSE 108; RESP 18; TEMP 36.7; O2SAT 98; BMI 30.8
--- NOTE | 2025-01-15 23:02 | PD.EDRME ---
Rapid Medical Screening Exam [facility] [place] Arrival date/time: 01/15/25 20:52 34M with history of DM and alcohol use presents to ED wanting to be re-admitted. Patient signed out AMA several hours ago. Patient was admitted for alcohol withdrawal symptoms and CVA work-up. Chief Complaint: Alcohol Vital signs: Vital Signs Temperature 98.1 F 01/15/25 22:38 Pulse Rate 108 H 01/15/25 22:38 Respiratory Rate 18 01/15/25 22:38 Blood Pressure 133/95 H 01/15/25 22:38 Pulse Oximetry (%) 98 01/15/25 22:38 Oxygen Delivery Method Room Air 01/15/25 22:38
[2025-01-15 23:32] LABS: Basophils # (Auto) 0.1 Thou/mm3 (0.0-0.2); Basophils % (Auto) 1 % (0-2.5); Eosinophils # (Auto) 0.5 Thou/mm3 (0.0-0.5); Eosinophils % (Auto) 4 % (0-10); Hemoglobin 13.1 g/dL (13.5-16.0); Immature Granulocytes % (Auto) 1 % (0-0); Immature Granulocytes Auto 0.07 Thou/mm3 (0.00-0.00); Lymphocytes # (Auto) 2.2 Thou/mm3 (1.0-4.8); Lymphocytes % (Auto) 17 % (10-50); Mean Corpuscular HGB Conc 34.5 g/dl (31.0-37.0); Mean Corpuscular Volume 93 fL (80-100); Monocytes # (Auto) 1.2 Thou/mm3 (0.0-0.8); Monocytes % (Auto) 10 % (0-12); Neutrophils # (Auto) 8.6 Thou/mm3 (1.8-7.7); Neutrophils % (Auto) 68 % (37-80); Nucleated Red Blood Cell % 0 /100 WBC (0); Platelet Count 212 Thou/mm3 (140-440); White Blood Count 12.7 Thou/mm3 (3.8-10.6)
[2025-01-15 23:45] LABS: Collection Type, Urine Clean Catch; Squamous Epithelial Cell,Urine 0 /hpf (0-5)
[2025-01-15 23:49] LABS: Ammonia 22 uMol/L (11-32)
[2025-01-15 23:51] LABS: Alanine Aminotransferase 57 U/L (10-49); Albumin, Serum 4.3 gm/dL (3.5-5.0); Albumin/Globulin Ratio 0.9 (1.2-2.2); Alkaline Phosphatase 350 U/L (46-116); Anion Gap 10 (7-16); Aspartate Amino Transferase 194 U/L (0-34); BUN/Creatinine Ratio 13 Ratio (12-20); Bilirubin,Total 1.5 mg/dL (0.3-1.2); Blood Urea Nitrogen 10 mg/dL (9-23); Carbon Dioxide 24.4 mMol/L (20.0-31.0); Chloride 98 mMol/L (98-107); Creatinine (Component) 0.8 mg/dL (0.6-1.3); Estimated Creatinine Clearance 106.9 mL/min (>60); Globulin 4.8 gm/dL (2.3-3.5); Glucose 221 mg/dL (74-106); Osmolality,Calculated 270 (275-295); Potassium 3.6 mMol/L (3.4-5.1); Sodium 132 mMol/L (136-145); Total Protein 9.1 gm/dL (5.7-8.2); eGFR > 60 See Note
[2025-01-15 23:58] LABS: Alcohol, Blood Medical < 3.0 mg/dL (0-10.0)
[2025-01-16] LABS: Bacteria,Urine Rare; Bilirubin,Urine Negative (Negative); Blood,Urine Negative (Negative); Clarity,Urine Clear (Clear/Hazy); Color,Urine Yellow (Lt Yel-Yel); Culture Indicated,Urine Not Indicated; Glucose, Urine Trace (Negative); Ketones,Urine Negative (Negative); Leukocyte Esterase,Urine Negative (Negative); Nitrite,Urine Negative (Negative); PH,Urine 7.5 (5.0-7.0); Protein,Urine 2+ (Neg - Trace); RBC,Urine 4 /hpf (0-3); Specific Gravity,Urine 1.017 (1.001-1.035); WBC,Urine 1 /hpf (0-5)
[2025-01-16 00:05] LABS: Amphetamine/Methamp Scrn,U Negative (Negative); Barbiturate Screen,Urine Negative (Negative); Benzodiazepines Screen,Urine Positive (Negative); Benzoylecgonine Screen, Ur Negative (Negative); Fentanyl Screen,Urine Negative (Negative); Opiate Screen,Urine Negative (Negative); THC Screen,Urine Negative (Negative)
--- NOTE | 2025-01-16 00:41 | PC.NURSE ---
0040 SPOKE WITH PT SIGNIFICANT OTHER , SHE ASKED IF WE WERE GOING TO ADMJIT PT AGAIN. I TOLD HER ALL LABS HAD NOT RETURNED BUT THE DECISION HAD NOT BEEN MADE YET. 0045 PT AND FAMILY NOTED TO WALK PAST NURSES STATION AND WALK INTO ER LOBBY AND EXIT THE ER.
== END 2025-01-16 00:45 | disposition left against medical advice (07) ==
PROVIDERS: Physician Assistant; Emergency Provider Emergency Medicine
DX: F10.90 Alcohol use, unspecified, uncomplicated (principal); E11.9 Type 2 diabetes mellitus without complications; Z53.29 Procedure and treatment not carried out because of patient's decision for other reasons
CPT/HCPCS: 36415; 80053; 80307; 80320; 81001; 82140; 85025; 99283; G0480